=== PATIENT | male | born 1965 | race Caucasian/White ===

== ENCOUNTER → 2018-04-20 | Outpatient (CLI) | payer OTHER | LOC: CAT 10:53 | DX: Z13.6 Encounter for screening for cardiovascular disorders (principal); E78.00 Pure hypercholesterolemia, unspecified ==

== ENCOUNTER → 2019-09-26 | Outpatient (CLI) | payer BC, OTHER | LOC: SJCVCIMAG 08:40 | DX: N28.1 Cyst of kidney, acquired (principal); F17.200 Nicotine dependence, unspecified, uncomplicated ==